=== PATIENT | female | born 1995 | race Caucasian/White ===

== ENCOUNTER 2017-05-20 11:22 | Inpatient (IN) | payer OTHER ==
[~2017-05-20] VITALS: Ht 165.1 cm; Wt 111.1 kg
--- NOTE | 2017-05-20 12:05 | Emergency Room Report ---
History of Present Illness General Chief Complaint: General Complaint Source: Patient Present Illness HPI 21-year-old female, presenting with a lumps to underneath breast and bilateral underarms, patient denies any fever chills or purulent drainage, patient here for surgery Allergies: Coded Allergies: No Known Allergies (Unverified , 05/20/17) Patient History Past Medical History: see triage record Past Surgical History: none Pertinent Family History: none Last Menstrual Period: apr 16 Now: No Reviewed Nursing Documentation: PMH: Agreed, PSxH: Agreed Nursing Documentation-PMH Past Medical History: No History, Except For Review of Systems All Other Systems: negative except mentioned in HPI Physical Exam Vital Signs Date Time Temp Pulse Resp B/P (MAP) Pulse Ox O2 Delivery O2 Flow Rate FiO2 05/20/17 11:32 97.9 79 18 116/80 99 Room Air 97.9 Sp02 EP Interpretation: reviewed, normal General Appearance: normal inspection, well appearing, no apparent distress, alert, GCS 15, non-toxic Head: normocephalic, atraumatic Eyes: bilateral eye normal inspection, bilateral eye PERRL, bilateral eye EOMI ENT: normal ENT inspection, normal pharynx, normal voice, moist mucus membranes Neck: normal inspection, full range of motion, supple Respiratory: normal inspection, lungs clear, normal breath sounds, no respiratory distress, no retraction, no wheezing, speaking full sentences, chest symmetrical Cardiovascular #1: normal inspection, regular rate, rhythm, no edema, normal capillary refill Cardiovascular #2: 2+ radial (R), 2+ radial (L) Gastrointestinal: normal inspection, non tender, soft, non-distended, no guarding Musculoskeletal: normal inspection, back normal, normal range of motion, non- tender Neurologic: normal inspection, alert, oriented x3, responsive, motor strength/ tone normal, sensory intact, normal gait, speech normal Psychiatric: normal inspection, judgement/insight normal, memory normal Skin: other - Several indurated lumps palpated under breasts as well as underarms, no signs of infection at this time Medical Decision Making Diagnostic Impression: Primary Impression: Hidradenitis suppurativa ER Course 21-year-old female with hidradenitis SUPPURITIVA DDX: hidradenitis SUPPURITIVA Plan: Obtain labs, ua, EKG ER course: Patient nad Disposition: Patient is to be admitted to MED SURG D/W hospitalist Dr Martinez Please note that this Emergency Department Report was dictated using [employer] technology software, occasionally this can lead to erroneous entry secondary to interpretation by the dictation equipment. EKG Diagnostic Results EP Interpretation: Yes Rate: normal Rhythm: NSR ST Segments: No acute changes ASA given to patient: No Chest X-ray CXR: Ordered: Yes 1 view Indication: pREOP EP interpretation: Yes Interpretation: No consolidation, no effusion, no PTX, no acute cardiopulmonary disease Impression: No acute disease Electronically signed by Ping Zavala MD Laboratory Tests Test 05/20/17 12:20 White Blood Count 9.0 K/UL (4.8-10.8) Red Blood Count 5.00 M/UL (4.20-5.40) Hemoglobin 15.0 G/DL (12.0-16.0) Hematocrit 43.4 % (37.0-47.0) Mean Corpuscular Volume 87 FL (80-99) Mean Corpuscular Hemoglobin 30.1 PG (27.0-31.0) Mean Corpuscular Hemoglobin Concent 34.6 G/DL (32.0-36.0) Red Cell Distribution Width 11.5 % (11.6-14.8) L Platelet Count 282 K/UL (150-450) Mean Platelet Volume 7.3 FL (6.5-10.1) Neutrophils (%) (Auto) 65.8 % (45.0-75.0) Lymphocytes (%) (Auto) 24.1 % (20.0-45.0) Monocytes (%) (Auto) 7.1 % (1.0-10.0) Eosinophils (%) (Auto) 2.2 % (0.0-3.0) Basophils (%) (Auto) 0.8 % (0.0-2.0) Prothrombin Time 10.0 SEC (9.30-11.50) Prothrombin Time INR 1.0 (0.9-1.1) PTT 25 SEC (23-33) Urine Color Yellow Urine Appearance Clear Urine pH 6.5 (4.5-8.0) Urine Specific [place] 1.015 (1.005-1.035) Urine Protein 1+ (NEGATIVE) H Urine Glucose (UA) Negative (NEGATIVE) Urine Ketones Negative (NEGATIVE) Urine Occult Blood Negative (NEGATIVE) Urine Nitrite Negative (NEGATIVE) Urine Bilirubin Negative (NEGATIVE) Urine Urobilinogen Normal MG/DL (0.0-1.0) Urine Leukocyte Esterase 1+ (NEGATIVE) H Urine RBC Pending Urine WBC Pending Urine Squamous Epithelial Cells Pending Urine Bacteria Pending Urine HCG, Qualitative Negative (NEGATIVE) Sodium Level 141 MMOL/L (136-145) Potassium Level 4.3 MMOL/L (3.5-5.1) Chloride Level 106 MMOL/L (98-107) Carbon Dioxide Level 26 MMOL/L (21-32) Anion Gap 9 mmol/L (5-15) Blood Urea Nitrogen 14 mg/dL (7-18) Creatinine 0.8 MG/DL (0.55-1.30) Estimate Glomerular Filtration Rate > 60 mL/min (>60) Glucose Level 98 MG/DL (74-106) Calcium Level 8.9 MG/DL (8.5-10.1) Total Bilirubin 0.7 MG/DL (0.2-1.0) Aspartate Amino Transferase (AST) 17 U/L (15-37) Alanine Aminotransferase (ALT) 24 U/L (12-78) Alkaline Phosphatase 61 U/L (46-116) Total Protein 7.6 G/DL (6.4-8.2) Albumin 3.9 G/DL (3.4-5.0) Globulin 3.7 g/dL Albumin/Globulin Ratio 1.1 (1.0-2.7) Last Vital Signs Date Time Temp Pulse Resp B/P (MAP) Pulse Ox O2 Delivery O2 Flow Rate FiO2 05/20/17 11:32 97.9 79 18 116/80 99 Room Air 97.9 Disposition: ADMITTED INPATIENT Condition: Ping Bagley M.D. May 20, 2017 12:05
[2017-05-20 12:42] LABS: APPEARANCE,URINE CLEAR; BILIRUBIN, URINE NEGATIVE (NEGATIVE); GLUCOSE, URINE (UA) NEGATIVE (NEGATIVE); KETONES,URINE NEGATIVE (NEGATIVE); LEUKOCYTE ESTERASE ,URINE 1+ (NEGATIVE); NITRITE,URINE NEGATIVE (NEGATIVE); PH,URINE 6.5 (4.5-8.0); PROTEIN,URINE 1+ (NEGATIVE); UROBILINOGEN,URINE NORMAL MG/DL (0.0-1.0)
[2017-05-20 12:47] LABS: BASOPHILS % (AUTO) 0.8 % (0.0-2.0); EOSINOPHILS % (AUTO) 2.2 % (0.0-3.0); HEMATOCRIT 43.4 % (37.0-47.0); LYMPHOCYTES % (AUTO) 24.1 % (20.0-45.0); MEAN CORPUSCULAR VOLUME 87 FL (80-99); MONOCYTES % (AUTO) 7.1 % (1.0-10.0); NEUTROPHILS % (AUTO) 65.8 % (45.0-75.0); PLATELET COUNT 282 K/UL (150-450); RED CELL DISTRIBUTION WIDTH 11.5 % (11.6-14.8)
[2017-05-20 12:50] LABS: ANION GAP 9 mmol/L (5-15); BLOOD UREA NITROGEN 14 mg/dL (7-18); CALCIUM 8.9 MG/DL (8.5-10.1); CARBON DIOXIDE 26 MMOL/L (21-32); CHLORIDE 106 MMOL/L (98-107); COLOR,URINE YELLOW; CREATININE 0.8 MG/DL (0.55-1.30); POTASSIUM 4.3 MMOL/L (3.5-5.1); SODIUM 141 MMOL/L (136-145)
[2017-05-20 12:55] LABS: ALANINE AMINOTRANSFERASE 24 U/L (12-78); ALBUMIN 3.9 G/DL (3.4-5.0); ALBUMIN/GLOBULIN RATIO 1.1 (1.0-2.7); ALKALINE PHOSPHATASE 61 U/L (46-116); ASPARTATE AMINO TRANSFERASE 17 U/L (15-37); BILIRUBIN,TOTAL 0.7 MG/DL (0.2-1.0)
[2017-05-20] MEDS ORDERED: Mylanta II UD 30ml ORAL PRN (13:30)
[2017-05-20] MEDS ORDERED: Miralax 17gm pkt ORAL PRN (13:30)
[2017-05-20] MEDS ORDERED: Zolpidem 5mg tab ORAL PRN (13:30)
[2017-05-20] MEDS ORDERED: Morphine Sulfate 4mg/ml Inj IVP PRN (13:30)
[2017-05-20] MEDS ORDERED: Morphine Sulfate 2mg/ml Inj IVP PRN (13:30)
[2017-05-20 13:34] VITALS: BP 116/80
[2017-05-20] MEDS ORDERED: NKM (13:44)
--- NOTE | 2017-05-20 15:08 | Diagnostic Imaging Report ---
Indication: Reason For Exam: PREOP Technique: One view of the chest Comparison: none Findings: Lungs and pleural spaces are clear. Heart size is normal Impression: No acute process
[2017-05-20 16:28] VITALS: BP 127/80
--- NOTE | 2017-05-20 16:28 | History and Physical ---
History of Present Illness General Date patient seen: May 20, 2017 Time patient seen: 16:28 Reason for Hospitalization: Abscess Present Illness HPI 21y/o female with pmh of hidradenitis suppurative who presents with b/l axillary swelling/redness/pain/drainage. Pt states she has been having symptoms for many years but recently worsening. She has tried antibiotics without much success. Denies f/c, n/v, d/c, chest pain, SOB. At baseline she is able to ambulate several blocks and climb at least a flight of stairs. Allergies: Coded Allergies: No Known Allergies (Unverified , 05/20/17) Medication History Scheduled No Known Medications* (NKM - No Known Medications*), 0 ., (Reported) Patient History History Provided By: Patient, Family Member, Medical Record Healthcare decision maker Resuscitation status Advanced Directive on File Past Medical/Surgical History Past Medical/Surgical History: (1) Hidradenitis suppurativa (2) S/P hernia surgery (3) H/O removal of cyst Family History Family History: Patient reports no known family medical history. Social History Social History: (1) No significant social history Review of Systems Constitutional: Reports: no symptoms Eye: Reports: no symptoms ENT: Reports: no symptoms Respiratory: Reports: no symptoms Cardiovascular: Reports: no symptoms Gastrointestinal: Reports: no symptoms Genitourinary: Reports: no symptoms Musculoskeletal: Reports: no symptoms Skin: Reports: no symptoms Psychiatric: Reports: no symptoms Neurological: Reports: no symptoms Endocrine: Reports: no symptoms Hematologic/Lymphatic: Reports: no symptoms Physical Exam Physical Exam Narrative General: alert, cooperative, no distress, appears stated age Head: normocephalic, without obvious abnormality, atraumatic Eyes: conjunctivae/corneas clear. PERRL, EOM's intact Throat: lips, mucosa, and tongue normal. MMM Neck: supple, symmetrical, trachea midline, and no JVD Lungs: clear to auscultation bilaterally Heart: regular rate and rhythm, S1, S2 normal, no murmur, click, rub or gallop Abdomen: soft, non-tender, non-distended, bowel sounds normal Extremities: extremities normal, atraumatic, no cyanosis or edema Pulses: 2+ and symmetric Skin: +b/l axillary area w/ edema/TTP/warmth/erythema/drainage/induration Neurologic: grossly normal, no focal deficits Last 24 Hour Vital Signs Date Time Temp Pulse Resp B/P (MAP) Pulse Ox O2 Delivery O2 Flow Rate FiO2 05/20/17 13:34 97.9 72 18 116/80 99 Room Air 97.9 05/20/17 11:32 97.9 79 18 116/80 99 Room Air 97.9 Laboratory Tests Test 05/20/17 12:20 White Blood Count 9.0 K/UL (4.8-10.8) Red Blood Count 5.00 M/UL (4.20-5.40) Hemoglobin 15.0 G/DL (12.0-16.0) Hematocrit 43.4 % (37.0-47.0) Mean Corpuscular Volume 87 FL (80-99) Mean Corpuscular Hemoglobin 30.1 PG (27.0-31.0) Mean Corpuscular Hemoglobin Concent 34.6 G/DL (32.0-36.0) Red Cell Distribution Width 11.5 % (11.6-14.8) L Platelet Count 282 K/UL (150-450) Mean Platelet Volume 7.3 FL (6.5-10.1) Neutrophils (%) (Auto) 65.8 % (45.0-75.0) Lymphocytes (%) (Auto) 24.1 % (20.0-45.0) Monocytes (%) (Auto) 7.1 % (1.0-10.0) Eosinophils (%) (Auto) 2.2 % (0.0-3.0) Basophils (%) (Auto) 0.8 % (0.0-2.0) Prothrombin Time 10.0 SEC (9.30-11.50) Prothromb Time International Ratio 1.0 (0.9-1.1) Activated Partial Thromboplast Time 25 SEC (23-33) Urine Color Yellow Urine Appearance Clear Urine pH 6.5 (4.5-8.0) Urine Specific [place] 1.015 (1.005-1.035) Urine Protein 1+ (NEGATIVE) H Urine Glucose (UA) Negative (NEGATIVE) Urine Ketones Negative (NEGATIVE) Urine Occult Blood Negative (NEGATIVE) Urine Nitrite Negative (NEGATIVE) Urine Bilirubin Negative (NEGATIVE) Urine Urobilinogen Normal MG/DL (0.0-1.0) Urine Leukocyte Esterase 1+ (NEGATIVE) H Urine RBC 0-2 /HPF (0 - 2) Urine WBC 2-4 /HPF (0 - 2) Urine Squamous Epithelial Cells Few /LPF (NONE/OCC) Urine Bacteria Few /HPF (NONE) Urine HCG, Qualitative Negative (NEGATIVE) Sodium Level 141 MMOL/L (136-145) Potassium Level 4.3 MMOL/L (3.5-5.1) Chloride Level 106 MMOL/L (98-107) Carbon Dioxide Level 26 MMOL/L (21-32) Anion Gap 9 mmol/L (5-15) Blood Urea Nitrogen 14 mg/dL (7-18) Creatinine 0.8 MG/DL (0.55-1.30) Estimat Glomerular Filtration Rate > 60 mL/min (>60) Glucose Level 98 MG/DL (74-106) Calcium Level 8.9 MG/DL (8.5-10.1) Total Bilirubin 0.7 MG/DL (0.2-1.0) Aspartate Amino Transf (AST/SGOT) 17 U/L (15-37) Alanine Aminotransferase (ALT/SGPT) 24 U/L (12-78) Alkaline Phosphatase 61 U/L (46-116) Total Protein 7.6 G/DL (6.4-8.2) Albumin 3.9 G/DL (3.4-5.0) Globulin 3.7 g/dL Albumin/Globulin Ratio 1.1 (1.0-2.7) Height (Feet): 5 Height (Inches): 5.00 Weight (Pounds): 245 Medications Current Medications Medications (Trade) Dose Ordered Sig/Aris Route PRN Reason Start Time Stop Time Status Last Admin Dose Admin Acetaminophen (Tylenol) 650 mg Q4H PRN ORAL Mild Pain (Pain Scale 1-3) 05/20/17 13:30 06/19/17 13:29 UNV Acetaminophen (Tylenol) 650 mg Q4H PRN ORAL fever 05/20/17 13:30 06/19/17 13:29 UNV Al Hydroxide/Mg Hydroxide (Mylanta II) 30 ml Q6H PRN ORAL dyspepsia 05/20/17 13:30 06/19/17 13:29 UNV Bisacodyl (Dulcolax) 10 mg HSPRN PRN RECTAL Constipation 05/20/17 13:30 06/19/17 13:29 UNV Dextrose (Dextrose 50%) STAT PRN IV Hypoglycemia 05/20/17 13:30 06/19/17 13:29 UNV Dextrose/Sodium Chloride 1,000 ml @ 75 mls/hr [id number] IV 05/21/17 06:00 06/20/17 05:59 UNV Diphenhydramine HCl (Benadryl) 25 mg Q6H PRN ORAL Itching/Pruritis 05/20/17 13:30 06/19/17 13:29 UNV Docusate Sodium (Colace) 100 mg EVERY 12 HOURS ORAL 05/20/17 21:00 06/19/17 20:59 UNV Morphine Sulfate (Morphine Sulfate) 2 mg Q3H PRN IVP Moderate Pain (Pain Scale 4-6) 05/20/17 13:30 05/27/17 13:29 UNV Morphine Sulfate (Morphine Sulfate) 4 mg Q3H PRN IVP Severe Pain (Pain Scale 7-10) 05/20/17 13:30 05/27/17 13:29 UNV Ondansetron HCl (Zofran) 4 mg Q6H PRN IVP Nausea & Vomiting 05/20/17 13:30 06/19/17 13:29 UNV Polyethylene Glycol (Miralax) 17 gm HSPRN PRN ORAL Constipation 05/20/17 13:30 06/19/17 13:29 UNV Zolpidem Tartrate (Ambien) 5 mg HSPRN PRN ORAL Insomnia 05/20/17 13:30 05/27/17 13:29 UNV Objective Narrative EKG and CXR wnl Assessment/Plan Problem List: (1) Abscess ICD Codes: L02.91 - Cutaneous abscess, unspecified SNOMED: 952500820 (2) Hidradenitis suppurativa ICD Codes: L73.2 - Hidradenitis suppurativa SNOMED: 19519330 Status: stable Assessment/Plan Admit inpt Plastic surgery consulted Empiric IV antibiotics IVFs Wound care Pain control, bowel regimen Supportive care If patient is required to have surgery, based on the patient's medical history, and other available ancillary data, the patient is a LOW risk for an INTERMEDIATE risk procedure. Per the most recent ACC/AHA guidelines, the patient does not need any further cardiopulmonary testing prior to the procedure and there do not appear to be any clear medical contraindications to proceeding with the proposed procedure. DVT ppx: SCDs FULL CODE D/w pt/family, RN, surgery regarding mgmt and dispo Jimmy Palencia M.D. May 20, 2017 16:28
[2017-05-20] MEDS ORDERED: ceFAZolin 1gm/50ml Premix 50 ML IV SCH (16:30)
[2017-05-20 20:00] VITALS: BP 132/76
[2017-05-20] MEDS ORDERED: Docusate 100mg cap ORAL SCH (21:00)
[2017-05-20] MEDS: D5 1/2NS 1,000 ML IV SCH (21:49)
[2017-05-20] MEDS: ceFAZolin sod 1 GM in NS 55 ML IVPB SCH (21:49)
[2017-05-21] VITALS (13 sets, daily range): BP systolic 109–172; BP diastolic 61–83
[2017-05-21] MEDS: ceFAZolin sod 1 GM in NS 55 ML IVPB SCH ×2 (04:12→15:42)
[2017-05-21] MEDS ORDERED: D5 1/2NS 1,000 ML IV SCH (06:00)
--- NOTE | 2017-05-21 07:15 | Pre-Procedure Note/Attestation ---
Pre-Procedure Note/Attestation Complete Prior to Procedure Planned Procedure: bilateral Procedure Narrative: Bilateral axillary and chest wall debridement with flap elevation Attestation I attest that I discussed the nature of the procedure; its benefits; risks and complications; and alternatives (and the risks and benefits of such alternatives ), prior to the procedure, with the patient (or the patient's legal bottling equipment sales representative). I attest that, if there was a reasonable possibility of needing a blood transfusion, the patient (or the patient's legal bottling equipment sales representative) was given the [facility] standardized written summary, pursuant to the [place] Blood Safety Act ([place] Health and Safety Code # 1645, as amended). I attest that I re-evaluated the patient just prior to the surgery and that there has been no change in the patient's H&P, except as documented below: GRICEL WADDELL May 21, 2017 07:15
[2017-05-21] MEDS ORDERED: Neosporin Oint Ud Pkt TOPIC ONE (07:23)
[2017-05-21] MEDS ORDERED: EPINEPHrine 1mg/1ml Amp ONE (07:24)
[2017-05-21] MEDS ORDERED: Surgicel 4in x 8in TOPIC ONE (07:24)
[2017-05-21] MEDS ORDERED: Bacitracin 50000 Units Vial ONE (07:24)
[2017-05-21] MEDS ORDERED: PCA Education Pamphlet MISC ONE (07:30)
[2017-05-21] MEDS ORDERED: Rate Change PCA 1 Each MISC PRN (07:30)
[2017-05-21] MEDS ORDERED: Zolpidem 5mg tab ORAL PRN (07:30)
[2017-05-21] MEDS ORDERED: DiphenhydrAMINE 50mg/ml Inj IVP PRN ×2 (07:30→08:45)
[2017-05-21] MEDS ORDERED: Lidocaine 1% 10mg/ml/EPI 0.01mg/ml 50ml INJ ONE (07:38)
[2017-05-21] MEDS ORDERED: NS Irrig 1000ml IRRIG ONE (08:00)
[2017-05-21] MEDS ORDERED: Morphine Sulfate 10mg/ml Inj ONE (08:00)
[2017-05-21] MEDS ORDERED: Ketorolac 30mg Inj ONE (08:00)
[2017-05-21] MEDS ORDERED: Zemuron 50mg/5ml Inj IV ONE (08:00)
[2017-05-21] MEDS ORDERED: fentaNYL 100 mcg/2 mL IV ONE (08:00)
[2017-05-21] MEDS ORDERED: Succinylcholine 20mg/ml 10ml vial ONE (08:00)
[2017-05-21] MEDS ORDERED: Neostigmine 1mg/ml 10ml Inj ONE (08:00)
[2017-05-21] MEDS ORDERED: Glycopyrrolate 0.2mg/ml 1ml Vial ONE (08:00)
[2017-05-21] MEDS ORDERED: Midazolam 2mg/2ml Inj ONE (08:00)
[2017-05-21] MEDS ORDERED: Propofol 200mg/20ml IV ONE (08:00)
[2017-05-21] MEDS ORDERED: LR 1000ml 1,000 ML IVLG SCH (08:32)
--- NOTE | 2017-05-21 08:32 | Anethesia Preoperative Eval ---
Anesthesia Pre-op PMH/ROS General Date of Evaluation: May 21, 2017 Time of Evaluation: 07:15 Anesthesiologist: Kathleen ASA Score: ASA 2 Mallampati Score Class I : Soft palate, uvula, fauces, pillars visible Class II: Soft palate, uvula, fauces visible Class III: Soft palate, base of uvula visible Class IV: Only hard plate visible Mallampati Classification: Class II Surgeon: Naren Diagnosis: Recurrent HS Surgical Procedure: Excision of bilateral axillary HS Anesthesia History: none Family History: no anesthesia problems Allergies: Coded Allergies: No Known Allergies (Unverified , 05/20/17) Medications: see eMAR Past Medical History Cardiovascular: Denies: HTN, CAD, NC, valve dz, arrhythmia, other Pulmonary: Denies: asthma, COPD, JUAN, other Gastrointestinal/Genitourinary: Reports: GERD - mild, Denies: CRI, ESRD, other Neurologic/Psychiatric: Reports: depression/anxiety, Denies: dementia, CVA, TIA, other Endocrine: Denies: DM, hypothyroidism, steroids, other HEENT: Denies: cataract (L), cataract (R), glaucoma, [place] (L), [place] (R), other Hematology/Immune: Denies: anemia, DVT, bleeding disorder, other Musculoskeletal/Integumentary: Denies: OA, RA, DJD, DDD, edema, other Other: obesity PMH Narrative: as above PSxH Narrative: Hernia repair Anesthesia Pre-op Phys. Exam Physician Exam Last Vital Signs Date Time Temp Pulse Resp B/P (MAP) Pulse Ox O2 Delivery O2 Flow Rate FiO2 05/21/17 04:15 98.2 65 16 109/61 Room Air 98.2 05/20/17 20:00 100 Constitutional: NAD Neurologic: CN 2-12 intact Cardiovascular: RRR, no M/R/G Respiratory: CTA Gastrointestinal: other - obesity Airway Exam Mallampati Score: Class II MO: full Neck: flexible ROM: full Teeth: intact Dentures: no upper, no lower Anesthesia Pre-op A/P Labs Hematology Test 05/20/17 12:20 White Blood Count 9.0 K/UL (4.8-10.8) Red Blood Count 5.00 M/UL (4.20-5.40) Hemoglobin 15.0 G/DL (12.0-16.0) Hematocrit 43.4 % (37.0-47.0) Mean Corpuscular Volume 87 FL (80-99) Mean Corpuscular Hemoglobin 30.1 PG (27.0-31.0) Mean Corpuscular Hemoglobin Concent 34.6 G/DL (32.0-36.0) Red Cell Distribution Width 11.5 % (11.6-14.8) L Platelet Count 282 K/UL (150-450) Mean Platelet Volume 7.3 FL (6.5-10.1) Neutrophils (%) (Auto) 65.8 % (45.0-75.0) Lymphocytes (%) (Auto) 24.1 % (20.0-45.0) Monocytes (%) (Auto) 7.1 % (1.0-10.0) Eosinophils (%) (Auto) 2.2 % (0.0-3.0) Basophils (%) (Auto) 0.8 % (0.0-2.0) Coagulation Test 05/20/17 12:20 Prothrombin Time 10.0 SEC (9.30-11.50) Prothromb Time International Ratio 1.0 (0.9-1.1) Activated Partial Thromboplast Time 25 SEC (23-33) Chemistry Test 05/20/17 12:20 Sodium Level 141 MMOL/L (136-145) Potassium Level 4.3 MMOL/L (3.5-5.1) Chloride Level 106 MMOL/L (98-107) Carbon Dioxide Level 26 MMOL/L (21-32) Anion Gap 9 mmol/L (5-15) Blood Urea Nitrogen 14 mg/dL (7-18) Creatinine 0.8 MG/DL (0.55-1.30) Estimat Glomerular Filtration Rate > 60 mL/min (>60) Glucose Level 98 MG/DL (74-106) Calcium Level 8.9 MG/DL (8.5-10.1) Total Bilirubin 0.7 MG/DL (0.2-1.0) Aspartate Amino Transf (AST/SGOT) 17 U/L (15-37) Alanine Aminotransferase (ALT/SGPT) 24 U/L (12-78) Alkaline Phosphatase 61 U/L (46-116) Total Protein 7.6 G/DL (6.4-8.2) Albumin 3.9 G/DL (3.4-5.0) Globulin 3.7 g/dL Albumin/Globulin Ratio 1.1 (1.0-2.7) Urine Test Test 05/20/17 12:20 Urine HCG, Qualitative Negative (NEGATIVE) Studies Pre-op Studies: EKG - NSR Risk Assessment & Plan Assessment: ASA 2 Plan: GA with ETT PONV prevention Status Change Before Surgery: No Pre-Antibiotics Drug: Ancef 2 gr Given Within 1 Hr of Incision: Yes Time Given: 08:04 LISA BROCK M.D. May 21, 2017 08:32
[2017-05-21] MEDS ORDERED: Meperidine 50mg/ml Inj(FOR RIGORS ONLY) IV PRN (08:45)
[2017-05-21] MEDS ORDERED: Midazolam 2mg/2ml Inj IVP PRN (08:45)
[2017-05-21] MEDS ORDERED: Hydromorphone 0.5mg/0.5ml inj IVP PRN (08:45)
[2017-05-21] MEDS ORDERED: Ketorolac 30mg Inj IV PRN (08:45)
[2017-05-21] MEDS: Docusate 100mg cap ORAL SCH ×2 (09:00→17:32)
--- NOTE | 2017-05-21 09:58 | Operative Note - PDOC ---
Operative Note Operative Note Pre-op Diagnosis: Bilateral axillary and chest wall HS Procedure: Radical excision of bilateral axillary and chest wall tissue with flap elevation Post-op Diagnosis: same as pre-op Surgeon: Naren Pesticide Applicator: Hussain Anesthesia: general Specimen: yes Complications: none Condition: stable Estimated Blood Loss: minimal Drains: none Implant(s) used?: No GRICEL WADDELL May 21, 2017 09:58
[2017-05-21] MEDS: PCA HYDROmorphone 1mg/ml 30 ML IV PRN (10:38)
--- NOTE | 2017-05-21 11:35 | Immediate Post-Op Evaluation ---
Immediate Post-Op Evalulation Immediate Post-Op Evalulation Procedure: Excision of bilateral axillary HS Date of Evaluation: May 21, 2017 Time of Evaluation: 10:06 IV Fluids: 1500 Blood Products: none Estimated Blood Loss: 100 Urinary Output: none Blood Pressure Systolic: 106 Blood Pressure Diastolic: 63 Pulse Rate: 74 Respiratory Rate: 20 O2 Sat by Pulse Oximetry: 99 Temperature (Fahrenheit): 97.8 Pain Score (1-10): 2 Nausea: No Vomiting: No Complications none Patient Status: reacts, patent, extubated, none Hydration Status: adequate LISA BROCK M.D. May 21, 2017 11:34
--- NOTE | 2017-05-21 12:01 | Consultation ---
DATE OF CONSULTATION: 05/21/2017 CONSULTING PHYSICIAN: Velia Sneed M.D. ADMITTING PHYSICIAN: Lito Martinez M.D. HISTORY OF PRESENT ILLNESS: This is a 21-year-old female, who was admitted to the emergency room for bilateral axillary pain and drainage associated with axillary hidradenitis. She was admitted, started on IV antibiotics, and I am seeing the patient in evaluation for surgical debridement and reconstruction. PAST MEDICAL HISTORY: Significant for morbid obesity and hidradenitis suppurativa. PAST SURGICAL HISTORY: Includes a previous abdominal cyst excision. ALLERGIES: None. MEDICATIONS: Include previous use of Humira. PHYSICAL EXAMINATION: GENERAL: The patient is alert and oriented x3. HEART: Regular rate and rhythm. ABDOMEN: Soft, nontender, and nondistended. BREASTS: Bilateral axilla reveals grade 3 hidradenitis suppurativa with active pus drainage as well as evidence of central chest wall hidradenitis grade 2 between both breasts and the cleavage region. ASSESSMENT AND PLAN: This is a 21-year-old female with advanced hidradenitis suppurativa in the axilla as well as her chest. She will require bilateral axillary debridement with excision of hidradenitis suppurativa as well as excision of the central chest wall hidradenitis suppurativa. Given the amount of infection present, she would not be a candidate for immediate reconstruction. However, the flaps will be elevated in the first operation and then this will be followed by flap inset within 48 hours. Velia Sneed M.D. DR: DANIEL JOB#: [id number] CC:
[2017-05-21] MEDS: D5 1/2NS 1,000 ML IV SCH (12:38)
--- NOTE | 2017-05-21 13:54 | General Progress Note ---
Assessment/Plan Problem List: (1) Abscess ICD Codes: L02.91 - Cutaneous abscess, unspecified SNOMED: 775081574 (2) Bilateral axillary hidradenitis (3) Chest wall hiradenitis (4) Hidradenitis suppurativa ICD Codes: L73.2 - Hidradenitis suppurativa SNOMED: [id number] Status: stable Assessment/Plan Appreciate surgery rec's s/p radical excision of bilateral axillary and chest wall tissue with flap elevation on 05/21/17 Wound care per surgery Plan for OR tomorrow for closure of wounds Cont empiric IV antibiotics Post operative recommendations include: - encourage mobilization/ambulation - encourage incentive spirometry to optimize pulmonary hygiene - DVT/GI prophylaxis as appropriate--SCDs, HSQ - ctm CBC and hemodynamics - ctm electrolytes, adjust/replete prn - pain control, supportive care, bowel regimen FULL CODE A total of 33min of extra time was spent on this encounter in addition to normal encounter time for care/coordination and counseling. D/w pt/family, RN, SW/CM, surgery regarding mgmt and dispo. Subjective Date patient seen: May 21, 2017 Time patient seen: 13:54 ROS Limited/Unobtainable: No Constitutional: Reports: no symptoms HEENT: Reports: no symptoms Cardiovascular: Reports: no symptoms Respiratory: Reports: no symptoms Gastrointestinal/Abdominal: Reports: nausea Genitourinary: Reports: no symptoms Neurologic/Psychiatric: Reports: no symptoms Endocrine: Reports: no symptoms Hematologic/Lymphatic: Reports: no symptoms Allergies: Coded Allergies: No Known Allergies (Unverified , 05/20/17) All Systems: reviewed and negative except above Subjective No acute o/n events s/p radical excision of bilateral axillary and chest wall tissue with flap elevation today POD#0 Afebrile, HDS Pain controlled. Denies f/c, emesis, SOB, chest pain, abd pain Objective Last 24 Hour Vital Signs Date Time Temp Pulse Resp B/P (MAP) Pulse Ox O2 Delivery O2 Flow Rate FiO2 05/21/17 12:25 18 05/21/17 12:00 98.3 70 20 143/65 99 Nasal Cannula 3.0 98.3 05/21/17 11:55 18 05/21/17 11:35 208.0 74 20 99 05/21/17 11:25 18 05/21/17 11:15 18 05/21/17 11:05 98.6 88 20 122/73 100 Nasal Cannula 3.0 98.6 05/21/17 10:58 97.0 05/21/17 10:58 97.0 05/21/17 10:58 97.0 05/21/17 10:56 82 20 134/65 100 Nasal Cannula 3.0 05/21/17 10:56 97.0 05/21/17 10:55 20 05/21/17 10:38 20 05/21/17 10:38 76 20 136/68 100 Nasal Cannula 3.0 05/21/17 10:30 73 20 145/82 100 Simple Mask 8.0 05/21/17 10:16 73 20 155/80 100 Simple Mask 8.0 05/21/17 10:16 97.0 05/21/17 10:09 74 20 164/83 100 Simple Mask 8.0 05/21/17 10:04 82 20 170/76 100 Simple Mask 8.0 05/21/17 09:59 97.0 97 20 172/82 100 Simple Mask 8.0 97.0 05/21/17 04:15 98.2 65 16 109/61 Room Air 98.2 05/20/17 20:00 97.7 63 20 132/76 100 Room Air 97.7 05/20/17 18:53 97.9 74 17 127/80 99 Room Air 97.9 05/20/17 16:28 97.9 74 17 127/80 99 Room Air 97.9 Intake and Output 05/20/17 05/21/17 19:00 07:00 Intake Total 600 ml Balance 600 ml Intake IV Total 600 ml # Voids 2 2 Height (Feet): 5 Height (Inches): 5.00 Weight (Pounds): 245 Objective General: alert, cooperative, no distress, appears stated age Head: normocephalic, without obvious abnormality, atraumatic Eyes: conjunctivae/corneas clear. PERRL, EOM's intact Throat: lips, mucosa, and tongue normal. MMM Neck: supple, symmetrical, trachea midline, and no JVD Lungs: clear to auscultation bilaterally Heart: regular rate and rhythm, S1, S2 normal, no murmur, click, rub or gallop Abdomen: soft, non-tender, non-distended, bowel sounds normal; no masses or organomegaly Extremities: extremities normal, atraumatic, no cyanosis or edema Pulses: 2+ and symmetric Skin: dressings c/d/i Neurologic: grossly normal, no focal deficits Jimmy Palencia M.D. May 21, 2017 13:54
--- NOTE | 2017-05-21 17:00 | Cardiology Report ---
APPROVED REPORT EKG Measurement Heart [id number] NE [id number] Normal sinus rhythm with sinus arrhythmia Normal ECG
--- NOTE | 2017-05-21 17:16 | Operative Note - Dictated ---
DATE OF OPERATION: 05/21/2017 PREOPERATIVE DIAGNOSES: 1. Bilateral axillary hidradenitis. 2. Central chest wall hidradenitis. POSTOPERATIVE DIAGNOSES: 1. Bilateral axillary hidradenitis. 2. Central chest wall hidradenitis. PROCEDURES: 1. Radical excision of hidradenitis tissue in the left axilla. 2. Radical excision of hidradenitis tissue in the right axilla. 3. Radical excision of central chest wall hidradenitis. 4. Elevation of a left-sided thoracodorsal artery flap for staged closure of left axillary wound. 5. Thoracodorsal flap elevation for staged closure of right axillary wound. SURGEON: Velia Sneed M.D. MERCHANDISE COMPLAINT ADJUSTER: Gui Nixon M.D. ANESTHESIA: General. COMPLICATIONS: None. DRAINS: None. DISPOSITION: Stable to the recovery room. INDICATION FOR SURGERY: This is a 21-year-old, female, admitted for bilateral axillary hidradenitis and central chest wall hidradenitis. We started her on IV antibiotics preoperatively, and on my assessment, I felt that she was an appropriate candidate for staged treatment with radical excision followed by flap reconstruction of her wounds. She understood the risks and benefits of surgery and agreed to proceed. DETAILS OF THE OPERATION: The patient was brought to the operating room and laid in the supine position on the operating table. Her bilateral upper extremity and chest were prepped and draped in a sterile and usual fashion. We first began by marking out the area of the disease in the left axilla and a regular type of elliptical excision pattern was designed and a corresponding thoracodorsal artery flap of the proper dimensions was also designed. A #10 blade was then used to make the skin incision to begin the excision of the left axillary tissue and electrocautery was then used to carry down the incision all way to the level of the axillary fascia to be able to remove the specimen en bloc. The defect that resulted on this side was 15 x 12 cm and was clearly not amenable to primary closure. As such, we proceeded to elevate the thoracodorsal artery flap, which also measured 15 cm in length and the width was about 8 cm to allow for inset into the defect. The skin incision was made along the thoracodorsal artery. Flap dissection was carried down all the way down to the level of the latissimus dorsi muscle fascia. The flap was elevated and perforators were noted to be going into the flap base and with the flap fully elevated and transposed into the defect, we noted that there was no tension and there was appropriate coverage of the wound. Once this was done, the wound was then copiously irrigated with pulse lavage. Hemostasis was achieved and given the fact that this was an infected field, the decision was made not to perform definitive flap inset at this operation, but however, to lay this until 48 hours of following local wound care with IV antibiotics. As such, the flap was then placed back in the donor site and the wound was staple closed and compressive dressing was then placed into the open axillary wound. We then turned our attention to the contralateral right axilla in a similar fashion. An elliptical type of incision was designed with a corresponding thoracodorsal artery flap. Then, we thought it would be appropriate physical defect that would result. A #10 blade was then used along with electrocautery to dissect all the way down to level the axillary fascia, then radically excised the right axillary infected hidradenitis bearing tissue, and the defect itself on this side was 16 x 13 cm and again not amenable to primary closure. As such, we proceeded to elevate the thoracodorsal artery flap with dimensions of 16 x 10 cm and the flap was elevated with dissection being carried down to the level of the latissimus muscle fascia. The flap was fully transposed and noted to be fitting into the defect. Hemostasis was achieved and for the same reason that was done on the other side, the flap was then placed in the donor site and stapled in place and compressive dressings were applied on the right axillary wound as well. We then approached her central chest, which had an area of approximately 4 x 2 cm with elliptical type of disease pattern, which was excised using a #10 blade and the specimen was then removed by further using electrocautery to dissect down the level of the chest wall fascia and given the presence of the infection and the purulent drainage, we felt that it will be appropriate to leave this wound open and perform definitive closure of the wound within 48 hours. Dressings were applied. The patient tolerated the procedure well and the plan will be to bring the patient back to the operating room within 48 hours for definitive closure of all wounds. She tolerated the procedure well. There were no complications. Velia Sneed M.D. DR: DANIEL JOB#: [id number] CC:
[2017-05-21] MEDS: PCA shift volume MISC SCH (19:21)
[2017-05-21] MEDS: Heparin 5000 units/ml inj SUBQ SCH (22:23)
[2017-05-22] VITALS: BP 124/68
[2017-05-22] MEDS: ceFAZolin sod 1 GM in NS 55 ML IVPB SCH ×4 (00:06→23:59)
[2017-05-22] MEDS: D5 1/2NS 1,000 ML IV SCH ×2 (00:07→15:48)
[2017-05-22 04:00] VITALS: BP 156/86
[2017-05-22] MEDS: PCA shift volume MISC SCH ×2 (07:13→19:00)
--- NOTE | 2017-05-22 07:59 | 48 Hour Post Anesthesia Eval ---
Post Anesthesia Evaluation Procedure: Excision of bilateral axillary HS Date of Evaluation: May 22, 2017 Time of Evaluation: 06:30 Blood Pressure Systolic: 156 0: 86 Pulse Rate: 72 Respiratory Rate: 16 Temperature (Fahrenheit): 97.7 O2 Sat by Pulse Oximetry: 96 Airway: patent Nausea: No Vomiting: No Pain Intensity: 1 Hydration Status: adequate Cardiopulmonary Status: at baseline Mental Status/LOC: patient returned to baseline Post-Anesthesia Complications: 0 Follow-up care needed: N/A - further care as per primary team MAYTE GRANT M.D. May 22, 2017 07:59
[2017-05-22 08:00] VITALS: BP 141/68
--- NOTE | 2017-05-22 08:36 | General Progress Note ---
Progress Note Progress Note PT seen and examined. POD# 1 and doing well. Dressings CDI. Plan for OR tomorrow for closure of all wounds. GRICEL Angel MD May 22, 2017 08:36
[2017-05-22] MEDS: Docusate 100mg cap ORAL SCH ×2 (08:44→17:30)
[2017-05-22] MEDS: Heparin 5000 units/ml inj SUBQ SCH ×2 (08:48→20:36)
[2017-05-22 12:00] VITALS: BP 149/82
[2017-05-22] MEDS: PCA HYDROmorphone 1mg/ml 30 ML IV PRN (13:09)
--- NOTE | 2017-05-22 14:42 | General Progress Note ---
Assessment/Plan Problem List: (1) Abscess ICD Codes: L02.91 - Cutaneous abscess, unspecified SNOMED: 600472311 (2) Bilateral axillary hidradenitis (3) Chest wall hiradenitis (4) Hidradenitis suppurativa ICD Codes: L73.2 - Hidradenitis suppurativa SNOMED: [id number] Status: stable Assessment/Plan Appreciate surgery rec's s/p radical excision of bilateral axillary and chest wall tissue with flap elevation on 05/21/17 Wound care per surgery Plan for OR tomorrow for closure of wounds, NPO at ID Cont empiric IV antibiotics Post operative recommendations include: - encourage mobilization/ambulation - encourage incentive spirometry to optimize pulmonary hygiene - DVT/GI prophylaxis as appropriate--SCDs, HSQ - ctm CBC and hemodynamics - ctm electrolytes, adjust/replete prn - pain control, supportive care, bowel regimen FULL CODE A total of 31min of extra time was spent on this encounter in addition to normal encounter time for care/coordination and counseling. D/w pt/family, RN, SW/CM, surgery regarding mgmt and dispo. Subjective Date patient seen: May 22, 2017 Time patient seen: 14:41 ROS Limited/Unobtainable: No Constitutional: Reports: no symptoms HEENT: Reports: no symptoms Cardiovascular: Reports: no symptoms Respiratory: Reports: no symptoms Gastrointestinal/Abdominal: Reports: no symptoms Genitourinary: Reports: no symptoms Neurologic/Psychiatric: Reports: no symptoms Endocrine: Reports: no symptoms Hematologic/Lymphatic: Reports: no symptoms Allergies: Coded Allergies: No Known Allergies (Unverified , 05/20/17) Subjective No acute o/n events s/p radical excision of bilateral axillary and chest wall tissue with flap elevation POD#1 Afebrile, HDS Pain controlled. Denies f/c, emesis, SOB, chest pain, abd pain Ambulating Passing gas, no BM yet Objective Last 24 Hour Vital Signs Date Time Temp Pulse Resp B/P (MAP) Pulse Ox O2 Delivery O2 Flow Rate FiO2 05/22/17 13:39 98.7 05/22/17 13:10 18 05/22/17 13:09 18 05/22/17 13:09 98.7 05/22/17 12:00 18 05/22/17 12:00 98.7 78 19 149/82 100 98.7 05/22/17 08:00 18 05/22/17 08:00 98.0 73 19 141/68 97 98.0 05/22/17 07:59 207.9 72 16 96 05/22/17 04:00 97.7 72 16 156/86 96 97.7 05/22/17 04:00 96 Room Air 05/22/17 04:00 19 05/22/17 00:00 98.6 77 20 124/68 95 98.6 05/22/17 00:00 95 Room Air 05/22/17 00:00 19 05/21/17 20:52 98.8 74 20 128/64 95 98.8 05/21/17 20:00 20 05/21/17 20:00 100 Room Air 05/21/17 16:00 98.3 59 20 133/67 100 Nasal Cannula 3.0 98.3 05/21/17 16:00 20 Intake and Output 05/21/17 05/22/17 19:00 07:00 Intake Total 2942.5 ml 1260 ml Output Total 100 ml Balance 2842.5 ml 1260 ml Intake Oral 500 ml 360 ml IV Total 2442.5 ml 900 ml Output Estimated Blood Loss 100 ml # Voids 1 3 Height (Feet): 5 Height (Inches): 5.00 Weight (Pounds): 245 Objective General: alert, cooperative, no distress, appears stated age Head: normocephalic, without obvious abnormality, atraumatic Eyes: conjunctivae/corneas clear. PERRL, EOM's intact Throat: lips, mucosa, and tongue normal. MMM Neck: supple, symmetrical, trachea midline, and no JVD Lungs: clear to auscultation bilaterally Heart: regular rate and rhythm, S1, S2 normal, no murmur, click, rub or gallop Abdomen: soft, non-tender, non-distended, bowel sounds normal; no masses or organomegaly Extremities: extremities normal, atraumatic, no cyanosis or edema Pulses: 2+ and symmetric Skin: dressings c/d/i Neurologic: grossly normal, no focal deficits Jimmy Palencia M.D. May 22, 2017 14:42
[2017-05-22 15:59] VITALS: BP 139/78
[2017-05-22 20:00] VITALS: BP 142/73
[2017-05-23] VITALS (14 sets, daily range): BP systolic 133–149; BP diastolic 58–77
[2017-05-23] MEDS: D5 1/2NS 1,000 ML IV SCH ×2 (05:00→16:34)
[2017-05-23] MEDS: PCA shift volume MISC SCH ×2 (07:00→19:00)
[2017-05-23 07:34] LABS: BASOPHILS % (AUTO) 0.6 % (0.0-2.0); EOSINOPHILS % (AUTO) 1.4 % (0.0-3.0); HEMATOCRIT 40.1 % (37.0-47.0); LYMPHOCYTES % (AUTO) 17.4 % (20.0-45.0); MEAN CORPUSCULAR VOLUME 86 FL (80-99); MONOCYTES % (AUTO) 6.7 % (1.0-10.0); NEUTROPHILS % (AUTO) 73.9 % (45.0-75.0); PLATELET COUNT 223 K/UL (150-450); RED BLOOD COUNT 4.66 M/UL (4.20-5.40); RED CELL DISTRIBUTION WIDTH 11.4 % (11.6-14.8)
[2017-05-23 07:56] LABS: ANION GAP 7 mmol/L (5-15); BLOOD UREA NITROGEN 9 mg/dL (7-18); CALCIUM 8.2 MG/DL (8.5-10.1); CARBON DIOXIDE 27 MMOL/L (21-32); CHLORIDE 103 MMOL/L (98-107); CREATININE 0.9 MG/DL (0.55-1.30); POTASSIUM 3.8 MMOL/L (3.5-5.1); SODIUM 137 MMOL/L (136-145)
[2017-05-23] MEDS ORDERED: Lidocaine 1% 10mg/ml/Epi 0.005mg/ml 30ml vial INJ ONE (08:38)
[2017-05-23] MEDS ORDERED: Surgicel 4in x 8in TOPIC ONE (08:38)
[2017-05-23] MEDS ORDERED: NeoSporin Gu Irrig 1ml Amp IRRIG ONE (08:38)
[2017-05-23] MEDS ORDERED: EPINEPHrine 1mg/1ml Amp ONE (08:38)
[2017-05-23] MEDS ORDERED: Bacitracin 50000 Units Vial ONE (08:38)
[2017-05-23] MEDS ORDERED: Propofol 200mg/20ml IV ONE ×2 (08:39→10:00)
[2017-05-23] MEDS: Docusate 100mg cap ORAL SCH ×2 (09:00→16:34)
[2017-05-23] MEDS: Heparin 5000 units/ml inj SUBQ SCH ×2 (09:00→21:40)
[2017-05-23] MEDS: ceFAZolin sod 1 GM in NS 55 ML IVPB SCH ×2 (09:08→16:34)
[2017-05-23] MEDS ORDERED: Zolpidem 5mg tab ORAL PRN (09:15)
[2017-05-23] MEDS ORDERED: Rate Change PCA 1 Each MISC PRN (09:15)
[2017-05-23] MEDS ORDERED: PCA Education Pamphlet MISC ONE (09:15)
[2017-05-23] MEDS ORDERED: DiphenhydrAMINE 50mg/ml Inj IVP PRN ×2 (09:15→12:00)
--- NOTE | 2017-05-23 09:15 | Pre-Procedure Note/Attestation ---
Pre-Procedure Note/Attestation Complete Prior to Procedure Planned Procedure: bilateral Procedure Narrative: Bilateral axillary and chest wall closure Indications for Procedure Pre-Operative Diagnosis: Bilateral axillary and chest wall HS Attestation I attest that I discussed the nature of the procedure; its benefits; risks and complications; and alternatives (and the risks and benefits of such alternatives ), prior to the procedure, with the patient (or the patient's legal credit and collections representative). I attest that, if there was a reasonable possibility of needing a blood transfusion, the patient (or the patient's legal credit and collections representative) was given the [facility] standardized written summary, pursuant to the Jonatan Mumtaz Blood Safety Act ([place] Health and Safety Code # 1645, as amended). I attest that I re-evaluated the patient just prior to the surgery and that there has been no change in the patient's H&P, except as documented below: GRICEL WADDELL May 23, 2017 09:15
[2017-05-23] MEDS ORDERED: fentaNYL 100 mcg/2 mL IV ONE (10:00)
[2017-05-23] MEDS ORDERED: Midazolam 2mg/2ml Inj ONE (10:00)
[2017-05-23] MEDS ORDERED: Glycopyrrolate 0.2mg/ml 1ml Vial ONE (10:00)
[2017-05-23] MEDS ORDERED: LR 1000ml ONE (10:00)
[2017-05-23] MEDS ORDERED: Zemuron 50mg/5ml Inj IV ONE (10:00)
[2017-05-23] MEDS ORDERED: NS Irrig 1000ml ONE (10:00)
[2017-05-23] MEDS ORDERED: Ketorolac 30mg Inj ONE (10:00)
[2017-05-23] MEDS ORDERED: Morphine Sulfate 10mg/ml Inj ONE (10:00)
[2017-05-23] MEDS ORDERED: Sterile Water Irrig 1000ml IRRIG ONE (10:00)
[2017-05-23] MEDS ORDERED: Neostigmine 1mg/ml 10ml Inj ONE (10:00)
[2017-05-23] MEDS ORDERED: NS Irrig 1000ml IRRIG ONE (10:20)
--- NOTE | 2017-05-23 11:57 | Anethesia Preoperative Eval ---
Anesthesia Pre-op PMH/ROS General Date of Evaluation: May 23, 2017 Time of Evaluation: 09:45 Anesthesiologist: Kathleen ASA Score: ASA 2 Mallampati Score Class I : Soft palate, uvula, fauces, pillars visible Class II: Soft palate, uvula, fauces visible Class III: Soft palate, base of uvula visible Class IV: Only hard plate visible Mallampati Classification: Class II Surgeon: Naren Diagnosis: Recurrent HS Surgical Procedure: Revision and closure of bilateral axillary wounds Anesthesia History: none Family History: no anesthesia problems Allergies: Coded Allergies: No Known Allergies (Unverified , 05/20/17) Medications: see eMAR Past Medical History Cardiovascular: Denies: HTN, CAD, [place], valve dz, arrhythmia, other Pulmonary: Denies: asthma, COPD, JUAN, other Gastrointestinal/Genitourinary: Reports: GERD - mild Neurologic/Psychiatric: Reports: depression/anxiety; Denies: dementia, CVA, TIA, other Endocrine: Denies: DM, hypothyroidism, steroids, other HEENT: Denies: cataract (L), cataract (R), glaucoma, [place] (L), [place] (R), other Hematology/Immune: Denies: anemia, DVT, bleeding disorder, other Musculoskeletal/Integumentary: Denies: OA, RA, DJD, DDD, edema, other Other: obesity PMH Narrative: as above PSxH Narrative: see H&P Anesthesia Pre-op Phys. Exam Physician Exam Last Vital Signs Date Time Temp Pulse Resp B/P (MAP) Pulse Ox O2 Delivery O2 Flow Rate FiO2 05/23/17 08:00 19 05/23/17 08:00 98.2 82 133/72 96 Room Air 98.2 05/21/17 16:00 3.0 Constitutional: NAD Neurologic: CN 2-12 intact Cardiovascular: RRR, no M/R/G Respiratory: CTA Gastrointestinal: other - obesity Airway Exam Mallampati Score: Class II MO: full Neck: flexible ROM: full Teeth: intact Dentures: no upper, no lower Anesthesia Pre-op A/P Labs Hematology Test 05/23/17 06:00 White Blood Count 9.0 K/UL (4.8-10.8) Red Blood Count 4.66 M/UL (4.20-5.40) Hemoglobin 14.0 G/DL (12.0-16.0) Hematocrit 40.1 % (37.0-47.0) Mean Corpuscular Volume 86 FL (80-99) Mean Corpuscular Hemoglobin 30.0 PG (27.0-31.0) Mean Corpuscular Hemoglobin Concent 34.8 G/DL (32.0-36.0) Red Cell Distribution Width 11.4 % (11.6-14.8) L Platelet Count 223 K/UL (150-450) Mean Platelet Volume 7.3 FL (6.5-10.1) Neutrophils (%) (Auto) 73.9 % (45.0-75.0) Lymphocytes (%) (Auto) 17.4 % (20.0-45.0) L Monocytes (%) (Auto) 6.7 % (1.0-10.0) Eosinophils (%) (Auto) 1.4 % (0.0-3.0) Basophils (%) (Auto) 0.6 % (0.0-2.0) Chemistry Test 05/23/17 06:00 Sodium Level 137 MMOL/L (136-145) Potassium Level 3.8 MMOL/L (3.5-5.1) Chloride Level 103 MMOL/L (98-107) Carbon Dioxide Level 27 MMOL/L (21-32) Anion Gap 7 mmol/L (5-15) Blood Urea Nitrogen 9 mg/dL (7-18) Creatinine 0.9 MG/DL (0.55-1.30) Estimat Glomerular Filtration Rate > 60 mL/min (>60) Glucose Level 105 MG/DL (74-106) Calcium Level 8.2 MG/DL (8.5-10.1) L Risk Assessment & Plan Assessment: ASA 2 Plan: GA with ETT PONV prevention Status Change Before Surgery: No Pre-Antibiotics Drug: Ancef 2gr. Given Within 1 Hr of Incision: Yes Time Given: 10:15 LISA BROCK M.D. May 23, 2017 11:57
[2017-05-23] MEDS ORDERED: LR 1000ml 1,000 ML IVLG SCH (11:58)
[2017-05-23] MEDS ORDERED: Hydromorphone 0.5mg/0.5ml inj IVP PRN (12:00)
[2017-05-23] MEDS ORDERED: Midazolam 2mg/2ml Inj IVP PRN (12:00)
[2017-05-23] MEDS ORDERED: Ketorolac 30mg Inj IV PRN (12:00)
[2017-05-23] MEDS ORDERED: Meperidine 50mg/ml Inj(FOR RIGORS ONLY) IV PRN (12:00)
--- NOTE | 2017-05-23 12:46 | Operative Note - PDOC ---
Operative Note Operative Note Pre-op Diagnosis: Bilateral axillary and chest wall HS Procedure: Closure of axillary and chest wall wounds Post-op Diagnosis: same as pre-op Surgeon: Naren Advertising Copy Writer: Angelica Anesthesia: general Specimen: yes Complications: none Condition: stable Estimated Blood Loss: minimal Drains: IBAN Implant(s) used?: No GRICEL WADDELL May 23, 2017 12:46
[2017-05-23] MEDS: PCA HYDROmorphone 1mg/ml 30 ML IV PRN (13:52)
--- NOTE | 2017-05-23 14:34 | Immediate Post-Op Evaluation ---
Immediate Post-Op Evalulation Immediate Post-Op Evalulation Procedure: Revision and closure of bilateral axillary wounds Date of Evaluation: May 23, 2017 Time of Evaluation: 12:58 IV Fluids: 1400 Blood Products: none Estimated Blood Loss: <50 Urinary Output: none Blood Pressure Systolic: 116 Blood Pressure Diastolic: 57 Pulse Rate: 72 Respiratory Rate: 20 O2 Sat by Pulse Oximetry: 98 Temperature (Fahrenheit): 98.5 Pain Score (1-10): 2 Nausea: No Vomiting: No Complications none Patient Status: reacts, patent, extubated, none Hydration Status: adequate LISA BROCK M.D. May 23, 2017 14:34
--- NOTE | 2017-05-23 14:56 | General Progress Note ---
Assessment/Plan Problem List: (1) Abscess ICD Codes: L02.91 - Cutaneous abscess, unspecified SNOMED: [id number] (2) Bilateral axillary hidradenitis (3) Chest wall hiradenitis (4) Hidradenitis suppurativa ICD Codes: L73.2 - Hidradenitis suppurativa SNOMED: [id number] Status: stable Assessment/Plan Appreciate surgery rec's s/p radical excision of bilateral axillary and chest wall tissue with flap elevation on 05/21/17 s/p closure of axillary and chest wall wounds on 05/23/17 Cont pain control w/ FIXED INCOME DIRECTOR Wound care per surgery Cont empiric IV antibiotics Post operative recommendations include: - encourage mobilization/ambulation - encourage incentive spirometry to optimize pulmonary hygiene - DVT/GI prophylaxis as appropriate--SCDs, HSQ - ctm CBC and hemodynamics - ctm electrolytes, adjust/replete prn - pain control, supportive care, bowel regimen FULL CODE A total of 32min of extra time was spent on this encounter in addition to normal encounter time for care/coordination and counseling. D/w pt/family, RN, SW/CM, surgery regarding mgmt and dispo. Subjective Date patient seen: May 23, 2017 Time patient seen: 17:00 ROS Limited/Unobtainable: No Constitutional: Reports: no symptoms HEENT: Reports: no symptoms Cardiovascular: Reports: no symptoms Respiratory: Reports: no symptoms Gastrointestinal/Abdominal: Reports: no symptoms Genitourinary: Reports: no symptoms Neurologic/Psychiatric: Reports: no symptoms Endocrine: Reports: no symptoms Hematologic/Lymphatic: Reports: no symptoms Allergies: Coded Allergies: No Known Allergies (Unverified , 05/20/17) All Systems: reviewed and negative except above Subjective No acute o/n events s/p radical excision of bilateral axillary and chest wall tissue with flap elevation POD#2 s/p closure of axillary and chest wall wounds today POD#0 Afebrile, HDS Pain controlled. Denies f/c, emesis, SOB, chest pain, abd pain Objective Last 24 Hour Vital Signs Date Time Temp Pulse Resp B/P (MAP) Pulse Ox O2 Delivery O2 Flow Rate FiO2 05/23/17 14:34 98.5 05/23/17 14:34 36.9 05/23/17 14:34 72 20 98 05/23/17 14:22 20 05/23/17 14:07 20 3/23/18 13:52 20 05/23/17 13:52 88 21 148/60 100 Nasal Cannula 3.0 05/23/17 13:43 98.6 05/23/17 13:35 81 21 144/61 100 Nasal Cannula 3.0 05/23/17 13:20 75 21 146/62 100 Nasal Cannula 3.0 05/23/17 13:05 79 21 144/64 100 Simple Mask 8.0 05/23/17 12:58 79 21 145/66 100 Simple Mask 8.0 05/23/17 12:53 98.6 92 21 149/63 100 Simple Mask 8.0 98.6 05/23/17 08:00 19 05/23/17 08:00 98.2 82 18 133/72 96 Room Air 98.2 05/23/17 04:39 18 05/23/17 04:00 98.0 78 18 142/64 94 Room Air 98.0 05/23/17 00:00 19 05/23/17 00:00 98.5 78 19 139/77 95 Room Air 98.5 05/22/17 20:00 98.4 80 18 142/73 96 Room Air 98.4 05/22/17 20:00 21 05/22/17 16:00 21 05/22/17 15:59 99.0 97 21 139/78 98 Room Air 99.0 Intake and Output 05/22/17 05/23/17 19:00 07:00 Intake Total 1360.0 ml 750 ml Balance 1360.0 ml 750 ml Intake Oral 500 ml IV Total 860.0 ml 750 ml # Voids 3 3 Laboratory Tests 05/23/17 06:00: White Blood Count 9.0, Red Blood Count 4.66, Hemoglobin 14.0, Hematocrit 40.1, Mean Corpuscular Volume 86, Mean Corpuscular Hemoglobin 30.0, Mean Corpuscular Hemoglobin Concent 34.8, Red Cell Distribution Width 11.4L, Platelet Count 223, Mean Platelet Volume 7.3, Neutrophils (%) (Auto) 73.9, Lymphocytes (%) (Auto) 17.4L, Monocytes (%) (Auto) 6.7, Eosinophils (%) (Auto) 1.4, Basophils (%) (Auto ) 0.6, Sodium Level 137, Potassium Level 3.8, Chloride Level 103, Carbon Dioxide Level 27, Anion Gap 7, Blood Urea Nitrogen 9, Creatinine 0.9, Estimat Glomerular Filtration Rate > 60, Glucose Level 105, Calcium Level 8.2L Height (Feet): 5 Height (Inches): 5.00 Weight (Pounds): 245 Objective General: alert, cooperative, no distress, appears stated age Head: normocephalic, without obvious abnormality, atraumatic Eyes: conjunctivae/corneas clear. PERRL, EOM's intact Throat: lips, mucosa, and tongue normal. MMM Neck: supple, symmetrical, trachea midline, and no JVD Lungs: clear to auscultation bilaterally Heart: regular rate and rhythm, S1, S2 normal, no murmur, click, rub or gallop Abdomen: soft, non-tender, non-distended, bowel sounds normal; no masses or organomegaly Extremities: extremities normal, atraumatic, no cyanosis or edema Pulses: 2+ and symmetric Skin: dressings c/d/i Neurologic: grossly normal, no focal deficits Jimmy Palencia M.D. May 23, 2017 14:56
--- NOTE | 2017-05-23 15:58 | 48 Hour Post Anesthesia Eval ---
Post Anesthesia Evaluation Procedure: Revision and closure of bilateral axillary wounds Date of Evaluation: May 23, 2017 Time of Evaluation: 14:31 Blood Pressure Systolic: 148 0: 60 Pulse Rate: 88 Respiratory Rate: 20 Temperature (Fahrenheit): 98.5 O2 Sat by Pulse Oximetry: 98 Airway: patent Nausea: No Vomiting: No Pain Intensity: 2 Hydration Status: adequate Cardiopulmonary Status: Stable Mental Status/LOC: patient returned to baseline Follow-up Care/Observations: 0 Post-Anesthesia Complications: 0 Follow-up care needed: N/A Clive Gunn MD May 23, 2017 15:58
--- NOTE | 2017-05-23 20:45 | Operative Note - Dictated ---
DATE OF OPERATION: 05/23/2017 PREOPERATIVE DIAGNOSES: 1. Bilateral open axillary wounds 2. Open central chest wound. POSTOPERATIVE DIAGNOSES: 1. Bilateral open axillary wounds 2. Open central chest wound. PROCEDURES: 1. Preparation of left axillary wound for the thoracodorsal flap closure. 2. Thoracodorsal flap reelevation for closure of left axillary wound. 3. Preparation of right axillary wound for thoracodorsal flap closure. 4. Elevation of right thoracodorsal flap for closure of right axillary wound. 5. Elevation of a left-sided chest wall flap for closure of central chest wall wound. 6. Elevation of a right-sided chest wall flap for closure of central chest wall wound. SURGEON: Velia Sneed M.D. SHOESHINER: Merlin Hernandez M.D. ANESTHESIA: General. COMPLICATIONS: None. DRAINS: Included a size 15 IBAN in each axilla. DISPOSITION: Stable to the recovery room. INDICATIONS FOR SURGERY: This is a 23-year-old female who is 48 hours postop from radical excision of infected hidradenitis of bilateral axillae as well as her chest, who underwent flap elevation at her first operation and is now 48 hours status post local wound care and IV antibiotics and is prepared for definitive flap insert. She understands the risks and benefits of surgery and agrees to proceed. DETAILS OF THE OPERATION: The patient was brought to the operating room and laid in the supine position on the operating table. Her bilateral axilla and central chest were prepped and draped in a sterile and usual fashion. Her left axillary wound was approached and some of the nonviable tissue was debrided. Once this was prepared, the wound was copiously irrigated with pulse lavage and the flap that had been previously elevated off of the chest wall, which was the thoracodorsal artery flap based off of perforators of the thoracodorsal artery was reelevated just above the level of the latissimus muscle fascia and it was then inset into the defect. Upon final inset, we noted that the distal tip of the flap needed to be trimmed as there was too much laxity in the entire length of the flap. Once this was drained using a #10 blade and electrocautery, the flap was inset using #0 and 2-0 Vicryl sutures and the donor site with the flap was harvested was also closed with #0 and 2-0 Vicryl sutures and lakeisha were used to close the skin. Prior to definitive closure of the wound, a IBAN size 15 was placed into the wound bed. Similarly on the contralateral right side, the right axillary wound was prepared for flap transfer. Nonviable tissue was excised. Hemostasis was achieved after pulse lavage irrigation. The flap was elevated again off of the chest wall, which is based off of perforators of the thoracodorsal artery. It was elevated above the latissimus muscle fascia and flap was inset similar to the other side. Some of the distal portion the flap was excised to allow for good tension on the flap. The flap was then inset using #0 and 2-0 Vicryl sutures and the donor site was closed with #0 and 2-0 Vicryl sutures as well. The lakeisha were used to close the skin. A IBAN size 15 had also been placement wound bed. The central chest wound measured 8 x 6 cm and was clearly not amenable to primary closure. As such, bilateral chest wall flaps have to be elevated to allow for a tension-free repair. Left-sided chest wall flap based off of perforators of the internal mammary artery was elevated and proximal distal incisions were made to fully mobilize the flap. In a similar fashion, the contralateral chest wall flap was elevated based off of perforators of the internal mammary artery with proximal and distal incisions made to fully mobilize this flap and the wound was then copiously irrigated with pulse lavage and the flaps were then brought together in the midline using #0 and 2-0 Vicryl sutures and a 2-0 Prolene vertical mattress stitch was used to close the skin. Velia Sneed M.D. DR: Osorio JOB#: [id number] CC:
[2017-05-24] VITALS: BP 127/78
[2017-05-24] MEDS: ceFAZolin sod 1 GM in NS 55 ML IVPB SCH ×2 (00:55→08:17)
[2017-05-24] MEDS: D5 1/2NS 1,000 ML IV SCH ×3 (01:01→20:12)
[2017-05-24 04:00] VITALS: BP 125/79
[2017-05-24] MEDS: PCA shift volume MISC SCH ×2 (07:00→19:00)
[2017-05-24 08:00] VITALS: BP 144/88
[2017-05-24] MEDS: Docusate 100mg cap ORAL SCH ×2 (08:45→17:40)
[2017-05-24] MEDS: Heparin 5000 units/ml inj SUBQ SCH ×2 (08:48→20:12)
--- NOTE | 2017-05-24 10:59 | General Progress Note ---
Progress Note Progress Note Pt seen and examined. POD# 1 from closure of wound. Doing well. Will need to continue IV abx and pain meds. Take down dressings on Friday Am Gricel Waddell M.D. GRICEL WADDELL May 24, 2017 10:59
[2017-05-24 12:00] VITALS: BP 145/85
[2017-05-24] MEDS: PCA HYDROmorphone 1mg/ml 30 ML IV PRN (14:29)
[2017-05-24 16:00] VITALS: BP 147/76
[2017-05-24] MEDS: NS IVPB SCH ×2 (16:29→23:51)
[2017-05-24] MEDS: CEFAZOLIN SOD IVPB SCH ×2 (16:29→23:51)
[2017-05-24] MEDS ORDERED: D5 1/2NS 1000ml IV ONE (17:27)
--- NOTE | 2017-05-24 19:31 | General Progress Note ---
Assessment/Plan Problem List: (1) Abscess ICD Codes: L02.91 - Cutaneous abscess, unspecified SNOMED: 204360823 (2) Chest wall hiradenitis (3) Bilateral axillary hidradenitis (4) Hidradenitis suppurativa ICD Codes: L73.2 - Hidradenitis suppurativa SNOMED: 43275117 (5) S/P hernia surgery ICD Codes: Z98.890 - Other specified postprocedural states; Z87.19 - Personal history of other diseases of the digestive system SNOMED: 03386567, 11104174, 49151189301041 (6) H/O removal of cyst ICD Codes: Z98.890 - Other specified postprocedural states SNOMED: 261434748 Status: stable Assessment/Plan Appreciate surgery rec's s/p radical excision of bilateral axillary and chest wall tissue with flap elevation on 05/21/17 s/p closure of axillary and chest wall wounds on 05/23/17 take down dressings in AM per surgery Cont pain control w/ GEOLOGIST PETROLEUM Wound care per surgery Cont empiric IV antibiotics Post operative recommendations include: - encourage mobilization/ambulation - encourage incentive spirometry to optimize pulmonary hygiene - DVT/GI prophylaxis as appropriate--SCDs, HSQ - ctm CBC and hemodynamics - ctm electrolytes, adjust/replete prn - pain control, supportive care, bowel regimen FULL CODE A total of min of extra time was spent on this encounter in addition to normal encounter time for care/coordination and counseling. D/w pt/family, RN, SW/CM, surgery regarding mgmt and dispo. Subjective Date patient seen: May 24, 2017 Time patient seen: 11:11 ROS Limited/Unobtainable: Yes Allergies: Coded Allergies: No Known Allergies (Unverified , 05/20/17) Subjective - doing well - wound dressings c/d/i - pain well controlled - denies cp, sob, n/v Objective Last 24 Hour Vital Signs Date Time Temp Pulse Resp B/P (MAP) Pulse Ox O2 Delivery O2 Flow Rate FiO2 05/24/17 16:00 98.9 98 19 147/76 96 Room Air 98.9 05/24/17 16:00 19 05/24/17 14:59 100.0 05/24/17 14:29 18 05/24/17 14:29 18 05/24/17 14:29 100.0 05/24/17 12:00 19 05/24/17 12:00 100.0 95 19 145/85 95 Room Air 100.0 05/24/17 09:15 99.5 99.5 05/24/17 09:15 99.4 05/24/17 08:16 100.0 05/24/17 08:00 19 05/24/17 08:00 100.0 102 19 144/88 96 Room Air 100.0 05/24/17 04:00 19 05/24/17 04:00 99.8 102 20 125/79 90 Room Air 99.8 05/24/17 00:00 98.8 96 17 127/78 92 Room Air 98.8 05/24/17 00:00 18 05/23/17 20:00 18 05/23/17 20:00 98.5 73 19 136/65 97 Room Air 3.0 98.5 Intake and Output 05/23/17 05/24/17 19:00 07:00 Intake Total 1815 ml 1398 ml Output Total 40 ml 15 ml Balance 1775 ml 1383 ml Intake Oral 240 ml 480 ml IV Total 1575 ml 918 ml Output Drainage Total 30 ml 15 ml Estimated Blood Loss 10 ml # Voids 1 1 Height (Feet): 5 Height (Inches): 5.00 Weight (Pounds): 245 General Appearance: no apparent distress, alert EENT: PERRL/EOMI Neck: non-tender, normal alignment, supple Cardiovascular: normal peripheral pulses, normal rate, regular rhythm Respiratory/Chest: chest wall non-tender, lungs clear, normal breath sounds Abdomen: normal bowel sounds, non tender, soft Neurologic: underwater welder II-XII grossly normal, no motor/sensory deficits, alert, oriented x 3 Skin: other - bilateral armpits with wound dressing c/d/i Gail Gandhi N.P. May 24, 2017 19:31
[2017-05-24 20:00] VITALS: BP 143/78
[2017-05-25] VITALS: BP 136/84
[2017-05-25 04:00] VITALS: BP 149/82
[2017-05-25] MEDS: PCA shift volume MISC SCH ×2 (07:06→19:09)
[2017-05-25 08:00] VITALS: BP 144/89
[2017-05-25] MEDS: CEFAZOLIN SOD IVPB SCH ×3 (08:10→23:48)
[2017-05-25] MEDS: NS IVPB SCH ×3 (08:10→23:48)
[2017-05-25 08:27] LABS: BASOPHILS % (AUTO) 0.7 % (0.0-2.0); EOSINOPHILS % (AUTO) 2.3 % (0.0-3.0); HEMATOCRIT 40.1 % (37.0-47.0); LYMPHOCYTES % (AUTO) 19.6 % (20.0-45.0); MEAN CORPUSCULAR VOLUME 86 FL (80-99); MONOCYTES % (AUTO) 7.1 % (1.0-10.0); NEUTROPHILS % (AUTO) 70.3 % (45.0-75.0); PLATELET COUNT 245 K/UL (150-450); RED BLOOD COUNT 4.67 M/UL (4.20-5.40); WHITE BLOOD COUNT 8.2 K/UL (4.8-10.8)
[2017-05-25] MEDS: Docusate 100mg cap ORAL SCH ×2 (08:35→17:46)
[2017-05-25] MEDS: Heparin 5000 units/ml inj SUBQ SCH ×2 (08:39→20:21)
[2017-05-25 08:57] LABS: ANION GAP 9 mmol/L (5-15); BLOOD UREA NITROGEN 5 mg/dL (7-18); CALCIUM 8.4 MG/DL (8.5-10.1); CARBON DIOXIDE 27 MMOL/L (21-32); CHLORIDE 100 MMOL/L (98-107); CREATININE 0.8 MG/DL (0.55-1.30); POTASSIUM 3.9 MMOL/L (3.5-5.1); SODIUM 136 MMOL/L (136-145)
[2017-05-25] MEDS ORDERED: PCA HYDROmorphone 1mg/ml 30 ML IV PRN (09:00)
[2017-05-25] MEDS ORDERED: Rate Change PCA 1 Each MISC PRN (09:00)
[2017-05-25] MEDS: D5 1/2NS 1,000 ML IV SCH ×3 (10:40→23:48)
[2017-05-25] MEDS ORDERED: D5 1/2NS 1000ml IV ONE (10:58)
[2017-05-25 12:00] VITALS: BP 133/77
[2017-05-25 16:00] VITALS: BP 143/85
[2017-05-25 20:00] VITALS: BP 141/80
--- NOTE | 2017-05-25 23:41 | General Progress Note ---
Assessment/Plan Problem List: (1) Abscess ICD Codes: L02.91 - Cutaneous abscess, unspecified SNOMED: 773385483 (2) Chest wall hiradenitis (3) Bilateral axillary hidradenitis (4) Hidradenitis suppurativa ICD Codes: L73.2 - Hidradenitis suppurativa SNOMED: 86073189 (5) S/P hernia surgery ICD Codes: Z98.890 - Other specified postprocedural states; Z87.19 - Personal history of other diseases of the digestive system SNOMED: 51311663, 77131961, 80697246480472 (6) H/O removal of cyst ICD Codes: Z98.890 - Other specified postprocedural states SNOMED: 190625992 Status: stable Assessment/Plan Appreciate surgery rec's s/p radical excision of bilateral axillary and chest wall tissue with flap elevation on 05/21/17 s/p closure of axillary and chest wall wounds on 05/23/17 take down dressings in AM per surgery Cont pain control w/ CHECKOUT SUPERVISOR Wound care per surgery Cont empiric IV antibiotics Post operative recommendations include: - encourage mobilization/ambulation - encourage incentive spirometry to optimize pulmonary hygiene - DVT/GI prophylaxis as appropriate--SCDs, HSQ - ctm CBC and hemodynamics - ctm electrolytes, adjust/replete prn - pain control, supportive care, bowel regimen FULL CODE A total of min of extra time was spent on this encounter in addition to normal encounter time for care/coordination and counseling. D/w pt/family, RN, SW/CM, surgery regarding mgmt and dispo. Subjective Date patient seen: May 25, 2017 Time patient seen: 12:00 Allergies: Coded Allergies: No Known Allergies (Unverified , 05/20/17) Subjective - doing well - low grade fevers 99.6, HDS - wound dressings c/d/i - pain well controlled - denies cp, sob, n/v Objective Last 24 Hour Vital Signs Date Time Temp Pulse Resp B/P (MAP) Pulse Ox O2 Delivery O2 Flow Rate FiO2 05/25/17 20:00 20 05/25/17 20:00 98.9 87 17 141/80 95 Room Air 98.9 05/25/17 18:25 99.2 05/25/17 18:24 99.2 99.2 05/25/17 16:43 100.1 05/25/17 16:00 20 05/25/17 16:00 100.1 84 19 143/85 98 Room Air 100.1 05/25/17 12:00 18 05/25/17 12:00 99.6 80 21 133/77 96 Room Air 99.6 05/25/17 08:54 99.3 05/25/17 08:24 18 05/25/17 08:24 99.3 05/25/17 08:00 98.0 98 21 144/89 95 Room Air 98.0 05/25/17 08:00 18 05/25/17 04:00 18 05/25/17 04:00 99.3 82 18 149/82 94 Room Air 99.3 05/25/17 00:00 19 05/25/17 00:00 98.5 83 19 136/84 94 Room Air 98.5 Intake and Output 05/24/17 05/25/17 18:59 06:59 Intake Total 1727.5 ml 950 ml Output Total 50 ml 12 ml Balance 1677.5 ml 938 ml Intake Oral 850 ml 200 ml IV Total 877.5 ml 750 ml Drainage Total 50 ml 12 ml # Voids 1 2 Laboratory Tests 05/25/17 07:12: White Blood Count 8.2, Red Blood Count 4.67, Hemoglobin 14.0, Hematocrit 40.1, Mean Corpuscular Volume 86, Mean Corpuscular Hemoglobin 29.9, Mean Corpuscular Hemoglobin Concent 34.8, Red Cell Distribution Width 11.0L, Platelet Count 245, Mean Platelet Volume 6.9, Neutrophils (%) (Auto) 70.3, Lymphocytes (%) (Auto) 19.6L, Monocytes (%) (Auto) 7.1, Eosinophils (%) (Auto) 2.3, Basophils (%) (Auto ) 0.7, Sodium Level 136, Potassium Level 3.9, Chloride Level 100, Carbon Dioxide Level 27, Anion Gap 9, Blood Urea Nitrogen 5L, Creatinine 0.8, Estimat Glomerular Filtration Rate > 60, Glucose Level 106, Calcium Level 8.4L Height (Feet): 5 Height (Inches): 5.00 Weight (Pounds): 245 General Appearance: no apparent distress, alert EENT: PERRL/EOMI Neck: non-tender, normal alignment Cardiovascular: normal peripheral pulses, normal rate, regular rhythm Respiratory/Chest: chest wall non-tender, lungs clear, normal breath sounds Abdomen: normal bowel sounds, non tender, soft Neurologic: irrigator overhead II-XII grossly normal, no motor/sensory deficits, alert, oriented x 3 Skin: normal pigmentation, warm/dry Gail Gandhi N.P. May 25, 2017 23:41
[2017-05-26] VITALS: BP 127/73
[2017-05-26 04:00] VITALS: BP 136/66
[2017-05-26] MEDS: PCA shift volume MISC SCH ×2 (07:03→19:28)
[2017-05-26] MEDS: CEFAZOLIN SOD IVPB SCH ×2 (07:36→15:45)
[2017-05-26] MEDS: NS IVPB SCH ×2 (07:36→15:45)
[2017-05-26 08:00] VITALS: BP 132/83
[2017-05-26] MEDS: Heparin 5000 units/ml inj SUBQ SCH ×2 (08:31→21:32)
[2017-05-26] MEDS: Docusate 100mg cap ORAL SCH ×2 (08:33→17:29)
[2017-05-26 12:02] VITALS: BP 124/70
[2017-05-26] MEDS: D5 1/2NS 1,000 ML IV SCH ×2 (13:20→21:30)
--- NOTE | 2017-05-26 13:35 | General Progress Note ---
Assessment/Plan Problem List: (1) Abscess ICD Codes: L02.91 - Cutaneous abscess, unspecified SNOMED: 660485592 (2) Bilateral axillary hidradenitis (3) Chest wall hiradenitis (4) Hidradenitis suppurativa ICD Codes: L73.2 - Hidradenitis suppurativa SNOMED: 22692919 Status: stable Assessment/Plan Appreciate surgery rec's s/p radical excision of bilateral axillary and chest wall tissue with flap elevation on 05/21/17 s/p closure of axillary and chest wall wounds on 05/23/17 Cont pain control w/ HOGSHEAD WEIGHER--wean off Wound care per surgery Cont empiric IV antibiotics Post operative recommendations include: - encourage mobilization/ambulation - encourage incentive spirometry to optimize pulmonary hygiene - DVT/GI prophylaxis as appropriate--SCDs, HSQ - ctm CBC and hemodynamics - ctm electrolytes, adjust/replete prn - pain control, supportive care, bowel regimen DC planning, likely Wed per surgery Home health ordered FULL CODE A total of 32min of extra time was spent on this encounter in addition to normal encounter time for care/coordination and counseling. D/w pt/family, RN, SW/CM, surgery regarding mgmt and dispo. Subjective Date patient seen: May 26, 2017 Time patient seen: 13:35 ROS Limited/Unobtainable: No Constitutional: Reports: no symptoms HEENT: Reports: no symptoms Cardiovascular: Reports: no symptoms Respiratory: Reports: no symptoms Gastrointestinal/Abdominal: Reports: no symptoms Genitourinary: Reports: no symptoms Neurologic/Psychiatric: Reports: no symptoms Endocrine: Reports: no symptoms Hematologic/Lymphatic: Reports: no symptoms Allergies: Coded Allergies: No Known Allergies (Unverified , 05/20/17) All Systems: reviewed and negative except above Subjective No acute o/n events s/p radical excision of bilateral axillary and chest wall tissue with flap elevation POD#5 s/p closure of axillary and chest wall wounds today POD#3 Afebrile, HDS Pain controlled. Denies f/c, emesis, SOB, chest pain, abd pain Objective Last 24 Hour Vital Signs Date Time Temp Pulse Resp B/P (MAP) Pulse Ox O2 Delivery O2 Flow Rate FiO2 05/26/17 12:03 20 05/26/17 12:02 99.0 92 20 124/70 100 Room Air 99.0 05/26/17 08:00 98.8 90 21 132/83 97 Room Air 98.8 05/26/17 08:00 20 05/26/17 04:00 20 05/26/17 04:00 98.9 83 18 136/66 97 Room Air 98.9 05/26/17 00:00 20 05/26/17 00:00 98.2 93 18 127/73 95 Room Air 98.2 05/25/17 20:00 20 05/25/17 20:00 98.9 87 17 141/80 95 Room Air 98.9 05/25/17 18:25 99.2 05/25/17 18:24 99.2 99.2 05/25/17 16:43 100.1 05/25/17 16:00 20 05/25/17 16:00 100.1 84 19 143/85 98 Room Air 100.1 Intake and Output 05/25/17 05/26/17 19:00 07:00 Intake Total 2782.5 ml 900 ml Output Total 0 ml 22 ml Balance 2782.5 ml 878 ml Intake Oral 950 ml IV Total 932.5 ml 900 ml Other 900 ml Stool Total 0 ml Drainage Total 22 ml # Voids 11 3 Height (Feet): 5 Height (Inches): 5.00 Weight (Pounds): 245 Objective General: alert, cooperative, no distress, appears stated age Head: normocephalic, without obvious abnormality, atraumatic Eyes: conjunctivae/corneas clear. PERRL, EOM's intact Throat: lips, mucosa, and tongue normal. MMM Neck: supple, symmetrical, trachea midline, and no JVD Lungs: clear to auscultation bilaterally Heart: regular rate and rhythm, S1, S2 normal, no murmur, click, rub or gallop Abdomen: soft, non-tender, non-distended, bowel sounds normal; no masses or organomegaly Extremities: extremities normal, atraumatic, no cyanosis or edema Pulses: 2+ and symmetric Skin: dressings c/d/i Neurologic: grossly normal, no focal deficits Jimmy Palencia M.D. May 26, 2017 13:35
[2017-05-26] MEDS ORDERED: KEFLEX500 MG ORAL (13:36)
[2017-05-26 16:00] VITALS: BP 149/83
[2017-05-26] MEDS ORDERED: Tubing IV Secondary IV ONE (17:04)
[2017-05-26] MEDS ORDERED: D5 1/2NS 1000ml IV ONE (17:04)
[2017-05-26] MEDS ORDERED: NS 500ML ONE (17:04)
[2017-05-26 20:00] VITALS: BP 136/72
[2017-05-27] VITALS: BP 132/68
[2017-05-27] MEDS: ceFAZolin sod 1 GM in D5W 110 ML IVPB SCH ×2 (00:27→08:00)
[2017-05-27] MEDS: D5 1/2NS 1,000 ML IV SCH (02:40)
[2017-05-27 04:00] VITALS: BP 130/70
[2017-05-27] MEDS: PCA shift volume MISC SCH (07:27)
[2017-05-27 08:00] VITALS: BP 141/84
[2017-05-27] MEDS ORDERED: PCA HYDROmorphone 1mg/ml 30 ML IV PRN (09:00)
[2017-05-27] MEDS: Docusate 100mg cap ORAL SCH (09:00)
[2017-05-27] MEDS ORDERED: Morphine Sulfate 4mg/ml Inj IVP PRN (09:00)
[2017-05-27] MEDS ORDERED: Morphine Sulfate 2mg/ml Inj IVP PRN (09:00)
[2017-05-27] MEDS ORDERED: Rate Change PCA 1 Each MISC PRN (09:00)
[2017-05-27] MEDS: Heparin 5000 units/ml inj SUBQ SCH (09:09)
[2017-05-27] MEDS ORDERED: HYDROcodone/Acetamin 10/325 tab ORAL ONE (09:30)
[2017-05-27] MEDS ORDERED: NORCO 10-325 T1 EACH ORAL (11:20)
[2017-05-27 11:52] VITALS: BP 124/78
[2017-05-27] MEDS ORDERED: PCA shift volume MISC SCH (19:00)
[2017-05-28] MEDS ORDERED: D5 1/2NS 1000ml IV ONE (08:00)
[2017-05-29] MEDS ORDERED: Morphine Sulfate 2mg/ml Inj IVP PRN (09:00)
[2017-05-29] MEDS ORDERED: Morphine Sulfate 4mg/ml Inj IVP PRN (09:00)
--- NOTE | 2017-06-04 08:53 | Discharge Summary ---
Discharge Summary Hospital Course Date of Admission May 20, 2017 at 13:20 Date of Discharge May 27, 2017 at 13:15 Admitting Diagnosis hidradenitis suppurativa Reason for Hospitalization: concern for abscess HPI 21y/o female with pmh of hidradenitis suppurative who presents with b/l axillary swelling/redness/pain/drainage. Pt states she has been having symptoms for many years but recently worsening. She has tried antibiotics without much success. Denies f/c, n/v, d/c, chest pain, SOB. At baseline she is able to ambulate several blocks and climb at least a flight of stairs. Consultations Plastic surgery Procedures Radical excision of bilateral axillary and chest wall tissue with flap elevation on 05/21/17 Closure of axillary and chest wall wounds on 05/23/17 Hospital Course Pt was admitted ad placed on IV antibiotics. She was seen by plastic surgery. She underwent radical excision of bilateral axillary and chest wall tissue with flap elevation on 05/21/17, followed by closure of axillary and chest wall wounds on 05/23/17. Pt required a few days for pain control and wound care. Once pain controlled and wounds stable per surgery, pt was discharged home w/ oral pain medications and antibiotics. Discharge physical exam General: alert, cooperative, no distress, appears stated age Head: normocephalic, without obvious abnormality, atraumatic Eyes: conjunctivae/corneas clear. PERRL, EOM's intact Throat: lips, mucosa, and tongue normal. MMM Neck: supple, symmetrical, trachea midline, and no JVD Lungs: clear to auscultation bilaterally Heart: regular rate and rhythm, S1, S2 normal, no murmur, click, rub or gallop Abdomen: soft, non-tender, non-distended, bowel sounds normal; no masses or organomegaly Extremities: extremities normal, atraumatic, no cyanosis or edema Pulses: 2+ and symmetric Skin: dressings c/d/i Neurologic: grossly normal, no focal deficits Discharge Medications New Medications: Cephalexin* (Keflex*) 500 Mg Capsule 500 MG ORAL Q6H for 7 Days, #28 CAP 0 Refills Continued Medications: Hydrocodone Bit/Acetaminophen 10-325* ([place] 10-325*) 1 Each Tablet 1 TAB ORAL Q4H PRN for For Pain, TAB 0 Refills (This prescription has been renewed) PRN PAIN No Known Medications* (NKM - No Known Medications*) . 0 ., 0 Refills (This prescription has been renewed) Discharge Condition Upon Discharge: stable Discharge Disposition Patient was discharged to Home (01) Discharge Diagnoses: (1) Abscess (2) Chest wall hiradenitis (3) Bilateral axillary hidradenitis Jimmy Palencia M.D. Jun 04, 2017 08:53
== END 2017-05-27 13:15 | disposition home or self-care (01) | DRG 574 ==
LOC: EMR 11:59 → 3E 13:20 → EDBEDREQ 17:43
PROC: 0JXF0ZC Transfer Left Upper Arm Subcutaneous Tissue and Fascia with Skin, Subcutaneous Tissue and Fascia, Open Approach (ICD-10-PCS; principal; 2017-05-21 07:30)
PROC: 0JBD0ZZ Excision of Right Upper Arm Subcutaneous Tissue and Fascia, Open Approach (ICD-10-PCS; principal; 2017-05-21 07:30)
PROC: 0JXD0ZC Transfer Right Upper Arm Subcutaneous Tissue and Fascia with Skin, Subcutaneous Tissue and Fascia, Open Approach (ICD-10-PCS; principal; 2017-05-21 07:30)
PROC: 0JB60ZZ Excision of Chest Subcutaneous Tissue and Fascia, Open Approach (ICD-10-PCS; principal; 2017-05-21 07:30)
PROC: 0JBF0ZZ Excision of Left Upper Arm Subcutaneous Tissue and Fascia, Open Approach (ICD-10-PCS; principal; 2017-05-21 07:30)
PROC: 0H8BXZZ Division of Right Upper Arm Skin, External Approach (ICD-10-PCS; 2017-05-23)
PROC: 0H85XZZ Division of Chest Skin, External Approach (ICD-10-PCS; 2017-05-23)
PROC: 0H8CXZZ Division of Left Upper Arm Skin, External Approach (ICD-10-PCS; 2017-05-23)
DX: L02.412 Cutaneous abscess of left axilla (principal); Z68.41 Body mass index [BMI] 40.0-44.9, adult; L73.2 Hidradenitis suppurativa; L02.411 Cutaneous abscess of right axilla; E66.01 Morbid (severe) obesity due to excess calories
CPT/HCPCS: 36415; 71045; 80048; 80053; 81003; 81025; 85025; 85610; 85730; 93005; 94003; 94150; 99285; J2250; J2405; J2710